=== PATIENT | male | born 1960 | race Caucasian/White ===

== ENCOUNTER 2017-11-04 04:57 | Inpatient (IN) | payer MEDICAID ==
[2017-11-04] MEDS: IPRATROPIUM (NEB) 0.5 MG/2.5 ML AMP NEB (05:43)
[2017-11-04] MEDS: ALBUTEROL 0.083% (NEB) 2.5 MG/3 ML AMP NEB (05:43)
[2017-11-04] MEDS: ACETAMINOPHEN 500 MG TAB PO (05:48)
[2017-11-04] MEDS: SODIUM CHLORIDE 0.9% 1L BAG IV* (05:48)
[2017-11-04] MEDS: CEFEPIME 2GM/50 ML (PMX) 50 ML IVPB (05:48)
[2017-11-04 06:11] LABS: ADD MAN DIFF? NO
[2017-11-04 06:19] LABS: WHITE BLOOD COUNT 21.2 10^3/ul (4.8-10.8)
[2017-11-04 06:19] LABS: BASOPHILS % 0.2 % (0.0-2.0); HEMATOCRIT 28.9 % (42.0-52.0); HEMOGLOBIN 9.3 g/dl (14.0-18.0); LYMPHOCYTES # 0.8 10^3/ul (0.8-2.9); LYMPHOCYTES % 3.6 % (15.0-51.0); MEAN CORPUSCULAR HEMOGLOBIN 25.4 pg (29.0-33.0); MEAN CORPUSCULAR HGB CONC 32.2 g/dl (32.0-37.0); MEAN PLATELET VOLUME 8.8 fl (7.4-10.4); MONOCYTE # 0.6 10^3/ul (0.3-0.9); NEUTROPHIL # 19.7 10^3/ul (1.6-7.5); NEUTROPHILS % 92.8 % (39.0-77.0); PLATELET COUNT 502 10^3/UL (140-415); RED BLOOD COUNT 3.66 10^6/ul (4.70-6.10); RED CELL DISTRIBUTION WIDTH 14.7 % (11.5-14.5)
[2017-11-04 06:36] LABS: ALANINE AMINOTRANSFERASE 41 IU/L (13-69); ALBUMIN 3.6 g/dl (3.3-4.9); ALBUMIN/GLOBULIN RATIO 0.92; ALKALINE PHOSPHATASE 217 IU/L (42-121); ANION GAP 17 (8-16); ASPARTATE AMINO TRANSFERASE 21 IU/L (15-46); BILIRUBIN,INDIRECT 0.2 mg/dl (0-1.1); BILIRUBIN,TOTAL 0.2 mg/dl (0.2-1.3); BLOOD UREA NITROGEN 13 mg/dl (7-20); CARBON DIOXIDE 22 mmol/L (21-31); CHLORIDE 101 mmol/L (97-110); CREATININE 0.49 mg/dl (0.61-1.24); GLUCOSE 100 mg/dl (70-220); POTASSIUM 3.8 mmol/L (3.5-5.1); SODIUM 136 mmol/L (135-144); TOTAL PROTEIN 7.5 g/dl (6.1-8.1)
[2017-11-04 06:37] LABS: INR 1.03; PROTIME 13.6 Sec (11.9-14.9); PT RATIO 1.1
[2017-11-04 06:38] LABS: PARTIAL THROMBOPLASTIN TIME 32.9 Sec (25.0-35.0)
[2017-11-04 06:43] LABS: LACTIC ACID 2.4 mmol/L (0.5-2.0)
[2017-11-04 06:51] LABS: TROPONIN-I < 0.012 ng/ml (0.00-0.12)
[2017-11-04] MEDS: VANCOMYCIN 1 GM (PMX) 250 ML IVPB (07:05)
[2017-11-04] MEDS ORDERED: ONDANSETRON 4 MG INJ IV (08:00)
[2017-11-04] MEDS ORDERED: ACETAMINOPHEN 650 MG SUPP PR (08:00)
[2017-11-04] MEDS ORDERED: NACL 0.9% 3 ML SYG IV (08:00)
[2017-11-04 08:40] LABS: ADD UMIC YES; UR AMORPHOUS CRYSTAL FEW /HPF (NONE SEEN); UR ASCORBIC ACID 40 mg/dL (NEGATIVE); UR BACTERIA FEW /HPF (NONE SEEN); UR BILIRUBIN (Dip) NEGATIVE (NEGATIVE); UR BLOOD (Dip) NEGATIVE (NEGATIVE); UR CLARITY CLOUDY (CLEAR); UR COLOR AMBER (YELLOW); UR GLUCOSE (Dip) NEGATIVE (NEGATIVE); UR KETONES (Dip) NEGATIVE (NEGATIVE); UR LEUKOCYTE ESTERASE (Dip) 3+ Leu/ul (NEGATIVE); UR MUCUS MANY /HPF (NONE SEEN); UR NITRITE (Dip) NEGATIVE (NEGATIVE); UR RBC 9 /HPF (0-5); UR SPECIFIC GRAVITY (Dip) 1.015 (1.003-1.030); UR SQUAMOUS EPITHELIAL CELL FEW /HPF (FEW); UR TOTAL PROTEIN (Dip) 1+ mg/dl (NEGATIVE); UR UROBILINOGEN (Dip) NEGATIVE (NEGATIVE); UR WBC > 182 /HPF (0-5)
[2017-11-04 10:50] LABS: LACTIC ACID 2.9 mmol/L (0.5-2.0)
[2017-11-04] MEDS: SOD CHLORIDE 0.9% 1,000 ML IV ×2 (13:02→16:33)
[2017-11-04] MEDS ORDERED: VANCOMYCIN IV PER PHARMACY XX (16:00)
[2017-11-04] MEDS: VANCOMYCIN 1 GM 250 ML IVPB (16:32)
[2017-11-04] MEDS ORDERED: CEFEPIME 1GM/50 ML (PMX) 50 ML IVPB (17:00)
[2017-11-04] MEDS: CEFEPIME 1GM/50 ML (PMX) 50 ML IVPB (20:39)
[2017-11-04] MEDS ORDERED: ACETAMINOPHEN 325 MG TAB PO (21:00)
[2017-11-04] MEDS ORDERED: ALBUTEROL/IPRATROPIUM (NEB) 3 ML AMP HHN ×2 (21:00)
[2017-11-04] MEDS ORDERED: NA PHOSPHATE/BIPHOS 133 ML ENEMA PR (21:00)
[2017-11-04] MEDS ORDERED: MAGNESIUM HYDROXIDE 30ML CUP PO (21:00)
[2017-11-04] MEDS ORDERED: GLUCAGON 1 MG INJ IM (21:30)
[2017-11-04] MEDS ORDERED: GLUCOSE GEL 15 GRAM TUBE PO ×2 (21:30)
[2017-11-04] MEDS ORDERED: GLUCOSE GEL 15 GRAM TUBE BUCCAL (21:30)
[2017-11-04] MEDS ORDERED: DEXTROSE 50% 50 ML SYRINGE IV ×2 (21:30)
[2017-11-04] MEDS: SOD CHLORIDE 0.9% 100 ML (21:34)
[2017-11-04] MEDS: IOHEXOL 300MG/ML 150 ML BTL (21:34)
[2017-11-04] MEDS: ALBUTEROL/IPRATROPIUM (NEB) 3 ML AMP HHN (22:36)
[2017-11-04] MEDS: CHLORHEXIDINE GLUCONATE 15 ML UD CUP MT (22:41)
[2017-11-04] MEDS: ASCORBIC ACID 500 MG TAB PO (22:42)
[2017-11-04] MEDS: GABAPENTIN 300 MG CAP PO (22:42)
[2017-11-04] MEDS: ZOLPIDEM 5 MG TAB PO (22:42)
[2017-11-04] MEDS: FERROUS SULFATE (EC) 325 MG TAB PO (22:42)
[2017-11-04] MEDS: DOCUSATE SODIUM 100 MG CAP PO (22:42)
[2017-11-04] MEDS: ATORVASTATIN 80 MG TAB PO (22:42)
[2017-11-05] MEDS: VANCOMYCIN 1 GM 250 ML IVPB ×2 (02:11→10:17)
[2017-11-05] MEDS: ALBUTEROL/IPRATROPIUM (NEB) 3 ML AMP HHN ×3 (03:05→21:13)
[2017-11-05] MEDS: GABAPENTIN 300 MG CAP PO ×4 (06:20→21:55)
[2017-11-05] MEDS: SOD CHLORIDE 0.9% 1,000 ML IV ×3 (08:33→23:55)
[2017-11-05] MEDS: CEFEPIME 1GM/50 ML (PMX) 50 ML IVPB (08:50)
[2017-11-05] MEDS: ASCORBIC ACID 500 MG TAB PO ×3 (08:51→20:52)
[2017-11-05] MEDS: CHLORHEXIDINE GLUCONATE 15 ML UD CUP MT ×2 (08:51→20:53)
[2017-11-05] MEDS: ZINC SULFATE 220 MG CAP PO (08:51)
[2017-11-05] MEDS: FERROUS SULFATE (EC) 325 MG TAB PO ×3 (08:52→20:53)
[2017-11-05] MEDS: metFORMIN 500 MG TAB PO ×2 (08:52→17:37)
[2017-11-05] MEDS: MULTIVITAMINS THERAPEUTIC TAB PO (08:52)
[2017-11-05] MEDS: ASPIRIN (EC) 81 MG TAB PO (08:52)
[2017-11-05 08:54] LABS: ADD MAN DIFF? NO
[2017-11-05] MEDS: BENAZEPRIL 5 MG TAB PO (08:55)
[2017-11-05] MEDS ORDERED: NON-FORMULARY/PATIENT OWN MED (Cranberry Extract (Cranberry) 425 MG) PO (09:00)
[2017-11-05 09:01] LABS: BASOPHIL # 0.1 10^3/ul (0.0-0.1); BASOPHILS % 0.2 % (0.0-2.0); EOSINOPHILS # 0.1 10^3/ul (0.0-0.5); EOSINOPHILS % 0.7 % (0.0-7.0); HEMATOCRIT 28.2 % (42.0-52.0); LYMPHOCYTES # 1.2 10^3/ul (0.8-2.9); LYMPHOCYTES % 6.1 % (15.0-51.0); MEAN CORPUSCULAR HEMOGLOBIN 25.4 pg (29.0-33.0); MEAN CORPUSCULAR HGB CONC 31.9 g/dl (32.0-37.0); MEAN CORPUSCULAR VOLUME 79.4 fl (82.0-101.0); MEAN PLATELET VOLUME 8.1 fl (7.4-10.4); MONOCYTE # 0.6 10^3/ul (0.3-0.9); MONOCYTES % 2.7 % (0.0-11.0); NEUTROPHIL # 18.3 10^3/ul (1.6-7.5); NEUTROPHILS % 89.6 % (39.0-77.0); PLATELET COUNT 484 10^3/UL (140-415); RED BLOOD COUNT 3.55 10^6/ul (4.70-6.10)
[2017-11-05 09:01] LABS: WHITE BLOOD COUNT 20.4 10^3/ul (4.8-10.8)
[2017-11-05 09:07] LABS: HEMOGLOBIN A1C 5.4 % (0-5.9)
[2017-11-05 09:23] LABS: ALANINE AMINOTRANSFERASE 25 IU/L (13-69); ALBUMIN 3.5 g/dl (3.3-4.9); ALBUMIN/GLOBULIN RATIO 1.06; ALKALINE PHOSPHATASE 188 IU/L (42-121); ANION GAP 14 (8-16); ASPARTATE AMINO TRANSFERASE 13 IU/L (15-46); BLOOD UREA NITROGEN 8 mg/dl (7-20); CALCIUM 8.8 mg/dl (8.4-10.2); CARBON DIOXIDE 22 mmol/L (21-31); CHLORIDE 108 mmol/L (97-110); CHOL/HDL RATIO 3.1 RATIO; CHOLESTEROL 85 mg/dl (100-200); CREATININE 0.36 mg/dl (0.61-1.24); GLUCOSE 91 mg/dl (70-220); HDL CHOLESTEROL 27 mg/dl (28-71); LDL CHOLESTEROL,CALCULATED 42 mg/dl; MAGNESIUM 1.7 mg/dl (1.7-2.5); SODIUM 141 mmol/L (135-144); TOTAL PROTEIN 6.8 g/dl (6.1-8.1); TRIGLYCERIDES 78 mg/dl (0-149)
[2017-11-05 09:24] LABS: VANCOMYCIN,TROUGH 11.2 ug/ml (10.0-20.0)
[2017-11-05 09:27] LABS: POTASSIUM 2.8 mmol/L (3.5-5.1)
[2017-11-05 09:29] LABS: LACTIC ACID 0.7 mmol/L (0.5-2.0)
[2017-11-05] MEDS: POTASSIUM CHLORIDE (SR) 20 MEQ TAB PO ×2 (11:39→15:03)
[2017-11-05] MEDS: POTASSIUM CHLORIDE 100 ML IVPB (12:44)
[2017-11-05] MEDS: ATORVASTATIN 80 MG TAB PO (20:52)
[2017-11-05] MEDS: VANCOMYCIN 1.25 GM in SOD CHLORIDE 0.9% 250 ML IVPB (20:52)
[2017-11-05] MEDS: DOCUSATE SODIUM 100 MG CAP PO (20:52)
[2017-11-05] MEDS: ZOLPIDEM 5 MG TAB PO (21:55)
[2017-11-06] MEDS: CEFEPIME 1GM/50 ML (PMX) 50 ML IVPB ×3 (01:24→20:47)
[2017-11-06] MEDS: VANCOMYCIN 1.25 GM in SOD CHLORIDE 0.9% 250 ML IVPB ×3 (02:29→18:00)
[2017-11-06] MEDS: SOD CHLORIDE 0.9% 1,000 ML IV ×2 (05:54→23:03)
[2017-11-06] MEDS: GABAPENTIN 300 MG CAP PO ×3 (05:54→21:06)
[2017-11-06 06:33] LABS: ADD MAN DIFF? NO
[2017-11-06 06:41] LABS: WHITE BLOOD COUNT 15.5 10^3/ul (4.8-10.8)
[2017-11-06 06:41] LABS: BASOPHILS % 0.3 % (0.0-2.0); EOSINOPHILS # 0.4 10^3/ul (0.0-0.5); EOSINOPHILS % 2.3 % (0.0-7.0); HEMATOCRIT 28.3 % (42.0-52.0); HEMOGLOBIN 8.9 g/dl (14.0-18.0); LYMPHOCYTES # 1.2 10^3/ul (0.8-2.9); LYMPHOCYTES % 7.8 % (15.0-51.0); MEAN CORPUSCULAR HEMOGLOBIN 25.5 pg (29.0-33.0); MEAN CORPUSCULAR HGB CONC 31.4 g/dl (32.0-37.0); MEAN CORPUSCULAR VOLUME 81.1 fl (82.0-101.0); MEAN PLATELET VOLUME 9.4 fl (7.4-10.4); MONOCYTE # 0.6 10^3/ul (0.3-0.9); MONOCYTES % 3.8 % (0.0-11.0); NEUTROPHIL # 13.2 10^3/ul (1.6-7.5); NEUTROPHILS % 85.2 % (39.0-77.0); PLATELET COUNT 404 10^3/UL (140-415); POSITIVE DIFF @See below; RED BLOOD COUNT 3.49 10^6/ul (4.70-6.10); RED CELL DISTRIBUTION WIDTH 14.9 % (11.5-14.5)
[2017-11-06 06:57] LABS: IRON 47 ug/dl (35-150)
[2017-11-06 07:00] LABS: ANION GAP 14 (8-16); BLOOD UREA NITROGEN 6 mg/dl (7-20); CALCIUM 8.9 mg/dl (8.4-10.2); CARBON DIOXIDE 21 mmol/L (21-31); CHLORIDE 110 mmol/L (97-110); CREATININE 0.32 mg/dl (0.61-1.24); GLUCOSE 97 mg/dl (70-220); MAGNESIUM 1.8 mg/dl (1.7-2.5); POTASSIUM 3.7 mmol/L (3.5-5.1); SODIUM 141 mmol/L (135-144)
[2017-11-06 07:07] LABS: % IRON SATURATION 24 % SAT (22-52); TOTAL IRON BINDING CAPACITY 192 ug/dl (241-421)
[2017-11-06] MEDS: ENOXAPARIN 30 MG/0.3 ML SYG SC (09:05)
[2017-11-06] MEDS: CHLORHEXIDINE GLUCONATE 15 ML UD CUP MT ×2 (09:05→20:48)
[2017-11-06] MEDS: FERROUS SULFATE (EC) 325 MG TAB PO ×2 (09:05→20:48)
[2017-11-06] MEDS: ASCORBIC ACID 500 MG TAB PO ×3 (09:05→20:48)
[2017-11-06] MEDS: BENAZEPRIL 5 MG TAB PO (09:06)
[2017-11-06] MEDS: ZINC SULFATE 220 MG CAP PO (09:06)
[2017-11-06] MEDS: ASPIRIN (EC) 81 MG TAB PO (09:06)
[2017-11-06] MEDS: MULTIVITAMINS THERAPEUTIC TAB PO (09:10)
[2017-11-06] MEDS: SODIUM HYPOCHLORITE 0.125% 473 ML BTL IRR ×2 (09:12→20:46)
[2017-11-06] MEDS: metFORMIN 500 MG TAB PO (09:19)
[2017-11-06] MEDS: POTASSIUM CHLORIDE (SR) 20 MEQ TAB PO (11:05)
[2017-11-06] MEDS: ALBUTEROL/IPRATROPIUM (NEB) 3 ML AMP HHN (12:06)
[2017-11-06 18:17] LABS: VANCOMYCIN,TROUGH 20.7 ug/ml (10.0-20.0)
[2017-11-06] MEDS: VANCOMYCIN 1 GM 250 ML IVPB (20:46)
[2017-11-06] MEDS: DOCUSATE SODIUM 100 MG CAP PO (20:48)
[2017-11-06] MEDS: ATORVASTATIN 80 MG TAB PO (20:48)
[2017-11-06] MEDS: FISH OIL 1,000 MG CAP PO (20:49)
[2017-11-06] MEDS: MUPIROCIN 2% 22 GM OINT TOP (20:49)
[2017-11-06] MEDS: BACLOFEN 10 MG TAB PO (21:05)
[2017-11-06] MEDS: ZOLPIDEM 5 MG TAB PO (23:04)
[2017-11-07] MEDS: VANCOMYCIN 1 GM 250 ML IVPB ×3 (04:34→21:38)
[2017-11-07 05:39] LABS: ADD MAN DIFF? NO
[2017-11-07 05:41] LABS: WHITE BLOOD COUNT 10.6 10^3/ul (4.8-10.8)
[2017-11-07 05:41] LABS: BASOPHILS % 0.3 % (0.0-2.0); EOSINOPHILS # 0.4 10^3/ul (0.0-0.5); EOSINOPHILS % 3.9 % (0.0-7.0); HEMATOCRIT 27.9 % (42.0-52.0); HEMOGLOBIN 8.8 g/dl (14.0-18.0); LYMPHOCYTES # 1.4 10^3/ul (0.8-2.9); LYMPHOCYTES % 13.1 % (15.0-51.0); MEAN CORPUSCULAR HEMOGLOBIN 25.1 pg (29.0-33.0); MEAN CORPUSCULAR HGB CONC 31.5 g/dl (32.0-37.0); MEAN CORPUSCULAR VOLUME 79.7 fl (82.0-101.0); MEAN PLATELET VOLUME 8.2 fl (7.4-10.4); MONOCYTE # 0.6 10^3/ul (0.3-0.9); MONOCYTES % 5.5 % (0.0-11.0); NEUTROPHIL # 8.2 10^3/ul (1.6-7.5); NEUTROPHILS % 76.7 % (39.0-77.0); PLATELET COUNT 514 10^3/UL (140-415); RED CELL DISTRIBUTION WIDTH 14.9 % (11.5-14.5)
[2017-11-07] MEDS: GABAPENTIN 300 MG CAP PO ×3 (06:00→21:38)
[2017-11-07 06:03] LABS: ANION GAP 14 (8-16); BLOOD UREA NITROGEN 4 mg/dl (7-20); CALCIUM 8.9 mg/dl (8.4-10.2); CARBON DIOXIDE 24 mmol/L (21-31); CHLORIDE 109 mmol/L (97-110); CREATININE 0.32 mg/dl (0.61-1.24); GLUCOSE 101 mg/dl (70-220); POTASSIUM 3.7 mmol/L (3.5-5.1); SODIUM 143 mmol/L (135-144)
[2017-11-07] MEDS: MULTIVITAMINS THERAPEUTIC TAB PO (09:01)
[2017-11-07] MEDS: ASPIRIN (EC) 81 MG TAB PO (09:01)
[2017-11-07] MEDS: CEFEPIME 1GM/50 ML (PMX) 50 ML IVPB ×2 (09:01→20:52)
[2017-11-07] MEDS: ZINC SULFATE 220 MG CAP PO (09:01)
[2017-11-07] MEDS: ASCORBIC ACID 500 MG TAB PO ×3 (09:01→20:53)
[2017-11-07] MEDS: BENAZEPRIL 5 MG TAB PO (09:01)
[2017-11-07] MEDS: FERROUS SULFATE (EC) 325 MG TAB PO ×2 (09:03→20:53)
[2017-11-07] MEDS: CHLORHEXIDINE GLUCONATE 15 ML UD CUP MT ×2 (09:04→20:53)
[2017-11-07] MEDS: FISH OIL 1,000 MG CAP PO ×2 (09:04→20:53)
[2017-11-07] MEDS: ENOXAPARIN 30 MG/0.3 ML SYG SC (09:05)
[2017-11-07] MEDS: MUPIROCIN 2% 22 GM OINT TOP ×2 (09:17→20:52)
[2017-11-07] MEDS: SODIUM HYPOCHLORITE 0.125% 473 ML BTL IRR ×2 (09:18→20:52)
[2017-11-07] MEDS: SOD CHLORIDE 0.9% 1,000 ML IV ×2 (10:05→23:25)
[2017-11-07] MEDS: ALBUTEROL/IPRATROPIUM (NEB) 3 ML AMP HHN (17:49)
[2017-11-07 19:54] LABS: VANCOMYCIN,TROUGH 16.9 ug/ml (10.0-20.0)
[2017-11-07] MEDS: GUAIFENESIN 20 MG/ML 5ML CUP PO (20:53)
[2017-11-07] MEDS: ATORVASTATIN 80 MG TAB PO (20:53)
[2017-11-07] MEDS: DOCUSATE SODIUM 100 MG CAP PO (20:53)
[2017-11-07] MEDS: ZOLPIDEM 5 MG TAB PO (23:38)
[2017-11-08] MEDS: SOD CHLORIDE 0.9% 1,000 ML IV ×2 (03:47→22:38)
[2017-11-08] MEDS: VANCOMYCIN 1 GM 250 ML IVPB ×3 (04:47→20:29)
[2017-11-08] MEDS: GABAPENTIN 300 MG CAP PO ×3 (06:00→22:04)
[2017-11-08 06:18] LABS: ADD MAN DIFF? NO
[2017-11-08 06:24] LABS: BASOPHIL # 0.1 10^3/ul (0.0-0.1); BASOPHILS % 0.7 % (0.0-2.0); EOSINOPHILS # 0.5 10^3/ul (0.0-0.5); EOSINOPHILS % 6.4 % (0.0-7.0); HEMATOCRIT 27.6 % (42.0-52.0); HEMOGLOBIN 8.8 g/dl (14.0-18.0); LYMPHOCYTES # 1.6 10^3/ul (0.8-2.9); LYMPHOCYTES % 21.5 % (15.0-51.0); MEAN CORPUSCULAR HEMOGLOBIN 25.6 pg (29.0-33.0); MEAN CORPUSCULAR HGB CONC 31.9 g/dl (32.0-37.0); MEAN CORPUSCULAR VOLUME 80.2 fl (82.0-101.0); MEAN PLATELET VOLUME 8.2 fl (7.4-10.4); MONOCYTE # 0.5 10^3/ul (0.3-0.9); MONOCYTES % 6.9 % (0.0-11.0); NEUTROPHIL # 4.8 10^3/ul (1.6-7.5); NEUTROPHILS % 64.1 % (39.0-77.0); PLATELET COUNT 486 10^3/UL (140-415); RED BLOOD COUNT 3.44 10^6/ul (4.70-6.10); RED CELL DISTRIBUTION WIDTH 14.8 % (11.5-14.5)
[2017-11-08 06:24] LABS: WHITE BLOOD COUNT 7.5 10^3/ul (4.8-10.8)
[2017-11-08 06:49] LABS: ANION GAP 12 (8-16); BLOOD UREA NITROGEN 4 mg/dl (7-20); CALCIUM 8.5 mg/dl (8.4-10.2); CARBON DIOXIDE 24 mmol/L (21-31); CHLORIDE 109 mmol/L (97-110); CREATININE 0.37 mg/dl (0.61-1.24); GLUCOSE 86 mg/dl (70-220); POTASSIUM 3.3 mmol/L (3.5-5.1); SODIUM 142 mmol/L (135-144)
[2017-11-08] MEDS: ASPIRIN (EC) 81 MG TAB PO (09:22)
[2017-11-08] MEDS: ASCORBIC ACID 500 MG TAB PO ×3 (09:22→20:32)
[2017-11-08] MEDS: ZINC SULFATE 220 MG CAP PO (09:22)
[2017-11-08] MEDS: FISH OIL 1,000 MG CAP PO ×2 (09:22→20:32)
[2017-11-08] MEDS: BENAZEPRIL 5 MG TAB PO (09:22)
[2017-11-08] MEDS: FERROUS SULFATE (EC) 325 MG TAB PO ×2 (09:22→20:32)
[2017-11-08] MEDS: CEFEPIME 1GM/50 ML (PMX) 50 ML IVPB ×2 (09:22→22:34)
[2017-11-08] MEDS: CHLORHEXIDINE GLUCONATE 15 ML UD CUP MT ×2 (09:22→20:31)
[2017-11-08] MEDS: ENOXAPARIN 30 MG/0.3 ML SYG SC (09:24)
[2017-11-08] MEDS: MULTIVITAMINS THERAPEUTIC TAB PO (09:27)
[2017-11-08] MEDS: MUPIROCIN 2% 22 GM OINT TOP ×2 (09:33→20:33)
[2017-11-08] MEDS: SODIUM HYPOCHLORITE 0.125% 473 ML BTL IRR ×2 (09:33→20:33)
[2017-11-08] MEDS: ALBUTEROL/IPRATROPIUM (NEB) 3 ML AMP HHN ×2 (09:53→17:26)
[2017-11-08] MEDS: GUAIFENESIN/DM 5ML CUP PO ×2 (16:43→22:00)
[2017-11-08] MEDS: POTASSIUM CHLORIDE (SR) 20 MEQ TAB PO (16:43)
[2017-11-08] MEDS: BENAZEPRIL 20 MG TAB PO (16:43)
[2017-11-08] MEDS: DOCUSATE SODIUM 100 MG CAP PO (20:31)
[2017-11-08] MEDS: ATORVASTATIN 80 MG TAB PO (20:32)
[2017-11-08] MEDS: ZOLPIDEM 5 MG TAB PO (21:59)
[2017-11-09] MEDS: VANCOMYCIN 1 GM 250 ML IVPB ×3 (04:24→20:07)
[2017-11-09] MEDS: SOD CHLORIDE 0.9% 1,000 ML IV (04:27)
[2017-11-09] MEDS: GABAPENTIN 300 MG CAP PO ×3 (06:22→22:03)
[2017-11-09] MEDS: CEFEPIME 1GM/50 ML (PMX) 50 ML IVPB ×2 (08:31→22:35)
[2017-11-09] MEDS: ENOXAPARIN 30 MG/0.3 ML SYG SC (08:32)
[2017-11-09] MEDS: FISH OIL 1,000 MG CAP PO ×2 (08:34→20:09)
[2017-11-09] MEDS: ASPIRIN (EC) 81 MG TAB PO (08:34)
[2017-11-09] MEDS: ASCORBIC ACID 500 MG TAB PO ×3 (08:34→20:09)
[2017-11-09] MEDS: CHLORHEXIDINE GLUCONATE 15 ML UD CUP MT ×2 (08:34→20:10)
[2017-11-09] MEDS: ZINC SULFATE 220 MG CAP PO (08:34)
[2017-11-09] MEDS: FERROUS SULFATE (EC) 325 MG TAB PO ×2 (08:34→20:09)
[2017-11-09] MEDS: BENAZEPRIL 40 MG TAB PO (08:34)
[2017-11-09] MEDS: MUPIROCIN 2% 22 GM OINT TOP ×2 (08:35→20:10)
[2017-11-09] MEDS: SODIUM HYPOCHLORITE 0.125% 473 ML BTL IRR ×2 (08:35→22:03)
[2017-11-09] MEDS: MULTIVITAMINS THERAPEUTIC TAB PO (08:57)
[2017-11-09] MEDS: GUAIFENESIN/DM 5ML CUP PO ×2 (09:31→19:15)
[2017-11-09] MEDS: ALBUTEROL/IPRATROPIUM (NEB) 3 ML AMP HHN (12:37)
[2017-11-09] MEDS: ATORVASTATIN 80 MG TAB PO (20:09)
[2017-11-09] MEDS: DOCUSATE SODIUM 100 MG CAP PO (20:09)
[2017-11-09] MEDS: hydrALAzine 20 MG INJ IV (22:01)
[2017-11-09] MEDS: ZOLPIDEM 5 MG TAB PO (22:03)
[2017-11-10] MEDS: SOD CHLORIDE 0.9% 1,000 ML IV ×3 (01:48→18:05)
[2017-11-10] MEDS: VANCOMYCIN 1 GM 250 ML IVPB ×3 (04:26→22:28)
[2017-11-10] MEDS: GABAPENTIN 300 MG CAP PO ×3 (06:09→21:16)
[2017-11-10] MEDS: ENOXAPARIN 30 MG/0.3 ML SYG SC (09:06)
[2017-11-10] MEDS: CEFEPIME 1GM/50 ML (PMX) 50 ML IVPB ×2 (09:06→21:16)
[2017-11-10] MEDS: FISH OIL 1,000 MG CAP PO ×2 (09:07→21:16)
[2017-11-10] MEDS: BENAZEPRIL 40 MG TAB PO (09:07)
[2017-11-10] MEDS: CHLORHEXIDINE GLUCONATE 15 ML UD CUP MT ×2 (09:07→21:14)
[2017-11-10] MEDS: FERROUS SULFATE (EC) 325 MG TAB PO ×2 (09:07→21:14)
[2017-11-10] MEDS: ASCORBIC ACID 500 MG TAB PO ×3 (09:07→21:16)
[2017-11-10] MEDS: ASPIRIN (EC) 81 MG TAB PO (09:07)
[2017-11-10] MEDS: ZINC SULFATE 220 MG CAP PO (09:07)
[2017-11-10] MEDS: MULTIVITAMINS THERAPEUTIC TAB PO (09:07)
[2017-11-10] MEDS: SODIUM HYPOCHLORITE 0.125% 473 ML BTL IRR ×2 (09:08→22:28)
[2017-11-10] MEDS: MUPIROCIN 2% 22 GM OINT TOP ×2 (09:08→21:17)
[2017-11-10 12:43] LABS: VANCOMYCIN,TROUGH 13.6 ug/ml (10.0-20.0)
[2017-11-10] MEDS: DOCUSATE SODIUM 100 MG CAP PO (21:14)
[2017-11-10] MEDS: ATORVASTATIN 80 MG TAB PO (21:16)
[2017-11-10] MEDS: ZOLPIDEM 5 MG TAB PO (22:53)
[2017-11-11] MEDS: VANCOMYCIN 1 GM 250 ML IVPB ×3 (04:12→20:19)
[2017-11-11] MEDS: GABAPENTIN 300 MG CAP PO ×3 (06:40→22:02)
[2017-11-11 06:48] LABS: CREATININE 0.34 mg/dl (0.61-1.24)
[2017-11-11 06:48] LABS: BLOOD UREA NITROGEN 8 mg/dl (7-20)
[2017-11-11] MEDS: CEFEPIME 1GM/50 ML (PMX) 50 ML IVPB ×2 (09:41→22:02)
[2017-11-11] MEDS: ASCORBIC ACID 500 MG TAB PO ×3 (09:43→20:20)
[2017-11-11] MEDS: FISH OIL 1,000 MG CAP PO ×2 (09:43→20:19)
[2017-11-11] MEDS: BENAZEPRIL 40 MG TAB PO (09:43)
[2017-11-11] MEDS: MULTIVITAMINS THERAPEUTIC TAB PO (09:43)
[2017-11-11] MEDS: ZINC SULFATE 220 MG CAP PO (09:43)
[2017-11-11] MEDS: ASPIRIN (EC) 81 MG TAB PO (09:43)
[2017-11-11] MEDS: FERROUS SULFATE (EC) 325 MG TAB PO ×2 (09:43→20:20)
[2017-11-11] MEDS: MUPIROCIN 2% 22 GM OINT TOP ×2 (09:44→20:20)
[2017-11-11] MEDS: SODIUM HYPOCHLORITE 0.125% 473 ML BTL IRR ×2 (09:44→22:02)
[2017-11-11] MEDS: CHLORHEXIDINE GLUCONATE 15 ML UD CUP MT (09:44)
[2017-11-11] MEDS: ENOXAPARIN 30 MG/0.3 ML SYG SC (09:52)
[2017-11-11] MEDS: GUAIFENESIN LA 600 MG TABSR PO ×2 (09:57→20:20)
[2017-11-11] MEDS: SOD CHLORIDE 0.9% 1,000 ML IV (13:32)
[2017-11-11] MEDS: ALBUTEROL/IPRATROPIUM (NEB) 3 ML AMP HHN (16:20)
[2017-11-11] MEDS: DOCUSATE SODIUM 100 MG CAP PO (20:19)
[2017-11-11] MEDS: ATORVASTATIN 80 MG TAB PO (20:20)
[2017-11-11] MEDS: ZOLPIDEM 5 MG TAB PO (22:02)
[2017-11-12] MEDS: SOD CHLORIDE 0.9% 1,000 ML IV ×2 (03:25→10:22)
[2017-11-12] MEDS: VANCOMYCIN 1 GM 250 ML IVPB ×3 (04:46→20:11)
[2017-11-12 05:50] LABS: ADD MAN DIFF? NO
[2017-11-12 05:59] LABS: BASOPHILS % 0.4 % (0.0-2.0); EOSINOPHILS # 0.4 10^3/ul (0.0-0.5); EOSINOPHILS % 6.9 % (0.0-7.0); HEMOGLOBIN 8.9 g/dl (14.0-18.0); LYMPHOCYTES # 1.6 10^3/ul (0.8-2.9); LYMPHOCYTES % 29.3 % (15.0-51.0); MEAN CORPUSCULAR HEMOGLOBIN 25.6 pg (29.0-33.0); MEAN CORPUSCULAR HGB CONC 31.8 g/dl (32.0-37.0); MEAN CORPUSCULAR VOLUME 80.5 fl (82.0-101.0); MEAN PLATELET VOLUME 8.3 fl (7.4-10.4); MONOCYTE # 0.4 10^3/ul (0.3-0.9); MONOCYTES % 7.1 % (0.0-11.0); NEUTROPHIL # 3.1 10^3/ul (1.6-7.5); NEUTROPHILS % 55.8 % (39.0-77.0); PLATELET COUNT 458 10^3/UL (140-415); RED BLOOD COUNT 3.48 10^6/ul (4.70-6.10); RED CELL DISTRIBUTION WIDTH 14.8 % (11.5-14.5)
[2017-11-12 05:59] LABS: WHITE BLOOD COUNT 5.5 10^3/ul (4.8-10.8)
[2017-11-12 06:53] LABS: ANION GAP 15 (8-16); BLOOD UREA NITROGEN 8 mg/dl (7-20); CALCIUM 8.4 mg/dl (8.4-10.2); CARBON DIOXIDE 23 mmol/L (21-31); CHLORIDE 111 mmol/L (97-110); CREATININE 0.33 mg/dl (0.61-1.24); GLUCOSE 93 mg/dl (70-220); SODIUM 146 mmol/L (135-144)
[2017-11-12 07:00] LABS: POTASSIUM 2.8 mmol/L (3.5-5.1)
[2017-11-12] MEDS: GABAPENTIN 300 MG CAP PO ×3 (07:57→22:19)
[2017-11-12] MEDS: CEFEPIME 1GM/50 ML (PMX) 50 ML IVPB ×2 (08:35→22:19)
[2017-11-12] MEDS: FERROUS SULFATE (EC) 325 MG TAB PO ×2 (08:36→20:12)
[2017-11-12] MEDS: ENOXAPARIN 30 MG/0.3 ML SYG SC (08:36)
[2017-11-12] MEDS: FISH OIL 1,000 MG CAP PO ×2 (08:36→20:12)
[2017-11-12] MEDS: ASPIRIN (EC) 81 MG TAB PO (08:37)
[2017-11-12] MEDS: POTASSIUM CHLORIDE (SR) 20 MEQ TAB PO ×2 (08:37→20:11)
[2017-11-12] MEDS: BENAZEPRIL 40 MG TAB PO (08:38)
[2017-11-12] MEDS: MULTIVITAMINS THERAPEUTIC TAB PO (08:38)
[2017-11-12] MEDS: ASCORBIC ACID 500 MG TAB PO ×3 (08:38→20:12)
[2017-11-12] MEDS: ZINC SULFATE 220 MG CAP PO (08:46)
[2017-11-12] MEDS: GUAIFENESIN LA 600 MG TABSR PO ×2 (08:46→20:11)
[2017-11-12] MEDS: MUPIROCIN 2% 22 GM OINT TOP ×2 (08:47→20:12)
[2017-11-12] MEDS: SODIUM HYPOCHLORITE 0.125% 473 ML BTL IRR ×2 (08:47→22:19)
[2017-11-12 11:02] LABS: MAGNESIUM 1.9 mg/dl (1.7-2.5)
[2017-11-12] MEDS: ATORVASTATIN 80 MG TAB PO (20:11)
[2017-11-12] MEDS: DOCUSATE SODIUM 100 MG CAP PO (20:11)
[2017-11-12] MEDS: ZOLPIDEM 5 MG TAB PO (23:39)
[2017-11-13] MEDS: SOD CHLORIDE 0.9% 1,000 ML IV ×3 (02:44→21:59)
[2017-11-13] MEDS: VANCOMYCIN 1 GM 250 ML IVPB ×3 (04:17→21:05)
[2017-11-13] MEDS: GABAPENTIN 300 MG CAP PO ×3 (05:43→21:59)
[2017-11-13 06:47] LABS: ADD MAN DIFF? NO
[2017-11-13 06:53] LABS: BASOPHIL # 0.1 10^3/ul (0.0-0.1); BASOPHILS % 0.8 % (0.0-2.0); EOSINOPHILS # 0.5 10^3/ul (0.0-0.5); EOSINOPHILS % 7.3 % (0.0-7.0); HEMATOCRIT 28.2 % (42.0-52.0); HEMOGLOBIN 8.9 g/dl (14.0-18.0); LYMPHOCYTES # 1.7 10^3/ul (0.8-2.9); LYMPHOCYTES % 23.1 % (15.0-51.0); MEAN CORPUSCULAR HEMOGLOBIN 25.4 pg (29.0-33.0); MEAN CORPUSCULAR HGB CONC 31.6 g/dl (32.0-37.0); MEAN CORPUSCULAR VOLUME 80.6 fl (82.0-101.0); MEAN PLATELET VOLUME 8.2 fl (7.4-10.4); MONOCYTE # 0.4 10^3/ul (0.3-0.9); MONOCYTES % 5.9 % (0.0-11.0); NEUTROPHIL # 4.6 10^3/ul (1.6-7.5); NEUTROPHILS % 62.4 % (39.0-77.0); PLATELET COUNT 435 10^3/UL (140-415); RED CELL DISTRIBUTION WIDTH 15.2 % (11.5-14.5)
[2017-11-13 06:53] LABS: WHITE BLOOD COUNT 7.4 10^3/ul (4.8-10.8)
[2017-11-13 07:11] LABS: ANION GAP 12 (8-16); BLOOD UREA NITROGEN 8 mg/dl (7-20); CALCIUM 8.5 mg/dl (8.4-10.2); CARBON DIOXIDE 25 mmol/L (21-31); CHLORIDE 110 mmol/L (97-110); CREATININE 0.34 mg/dl (0.61-1.24); GLUCOSE 95 mg/dl (70-220); POTASSIUM 3.4 mmol/L (3.5-5.1); SODIUM 144 mmol/L (135-144)
[2017-11-13] MEDS: FISH OIL 1,000 MG CAP PO ×2 (08:57→21:10)
[2017-11-13] MEDS: ZINC SULFATE 220 MG CAP PO (08:57)
[2017-11-13] MEDS: GUAIFENESIN LA 600 MG TABSR PO ×2 (08:57→21:10)
[2017-11-13] MEDS: MULTIVITAMINS THERAPEUTIC TAB PO (08:57)
[2017-11-13] MEDS: ASCORBIC ACID 500 MG TAB PO ×3 (08:57→21:05)
[2017-11-13] MEDS: ASPIRIN (EC) 81 MG TAB PO (08:57)
[2017-11-13] MEDS: FERROUS SULFATE (EC) 325 MG TAB PO ×2 (08:57→21:05)
[2017-11-13] MEDS: BENAZEPRIL 40 MG TAB PO (08:58)
[2017-11-13] MEDS: ENOXAPARIN 30 MG/0.3 ML SYG SC (08:59)
[2017-11-13] MEDS: CEFEPIME 1GM/50 ML (PMX) 50 ML IVPB ×2 (09:02→23:05)
[2017-11-13] MEDS: SODIUM HYPOCHLORITE 0.125% 473 ML BTL IRR ×2 (09:03→21:07)
[2017-11-13] MEDS: MUPIROCIN 2% 22 GM OINT TOP ×2 (09:03→21:08)
[2017-11-13] MEDS: POTASSIUM CHLORIDE (SR) 20 MEQ TAB PO (10:19)
[2017-11-13 19:51] LABS: VANCOMYCIN,TROUGH 15.5 ug/ml (10.0-20.0)
[2017-11-13] MEDS: DOCUSATE SODIUM 100 MG CAP PO (21:05)
[2017-11-13] MEDS: ATORVASTATIN 80 MG TAB PO (21:10)
[2017-11-13] MEDS: hydrALAzine 20 MG INJ IV (22:28)
[2017-11-13] MEDS: ZOLPIDEM 5 MG TAB PO (23:12)
[2017-11-14] MEDS: ALBUTEROL/IPRATROPIUM (NEB) 3 ML AMP HHN ×2 (00:11→16:15)
[2017-11-14] MEDS: VANCOMYCIN 1 GM 250 ML IVPB ×3 (03:59→20:57)
[2017-11-14 06:06] LABS: ADD MAN DIFF? NO
[2017-11-14 06:10] LABS: BASOPHIL # 0.1 10^3/ul (0.0-0.1); BASOPHILS % 0.8 % (0.0-2.0); EOSINOPHILS # 0.4 10^3/ul (0.0-0.5); EOSINOPHILS % 5.2 % (0.0-7.0); HEMATOCRIT 28.1 % (42.0-52.0); HEMOGLOBIN 8.7 g/dl (14.0-18.0); LYMPHOCYTES # 1.7 10^3/ul (0.8-2.9); LYMPHOCYTES % 21.1 % (15.0-51.0); MEAN CORPUSCULAR HEMOGLOBIN 25.2 pg (29.0-33.0); MEAN CORPUSCULAR VOLUME 81.4 fl (82.0-101.0); MEAN PLATELET VOLUME 8.6 fl (7.4-10.4); MONOCYTE # 0.4 10^3/ul (0.3-0.9); MONOCYTES % 4.7 % (0.0-11.0); NEUTROPHIL # 5.4 10^3/ul (1.6-7.5); NEUTROPHILS % 67.8 % (39.0-77.0); PLATELET COUNT 413 10^3/UL (140-415); RED BLOOD COUNT 3.45 10^6/ul (4.70-6.10); RED CELL DISTRIBUTION WIDTH 15.6 % (11.5-14.5)
[2017-11-14 06:10] LABS: WHITE BLOOD COUNT 7.9 10^3/ul (4.8-10.8)
[2017-11-14] MEDS: GABAPENTIN 300 MG CAP PO ×3 (06:11→20:58)
[2017-11-14 06:33] LABS: ANION GAP 16 (8-16); BLOOD UREA NITROGEN 8 mg/dl (7-20); CALCIUM 8.5 mg/dl (8.4-10.2); CARBON DIOXIDE 23 mmol/L (21-31); CHLORIDE 112 mmol/L (97-110); CREATININE 0.35 mg/dl (0.61-1.24); GLUCOSE 94 mg/dl (70-220); POTASSIUM 3.5 mmol/L (3.5-5.1); SODIUM 147 mmol/L (135-144)
[2017-11-14] MEDS: BENAZEPRIL 40 MG TAB PO (09:00)
[2017-11-14] MEDS: GUAIFENESIN LA 600 MG TABSR PO ×2 (09:24→20:57)
[2017-11-14] MEDS: CEFEPIME 1GM/50 ML (PMX) 50 ML IVPB ×2 (09:24→23:35)
[2017-11-14] MEDS: FISH OIL 1,000 MG CAP PO ×2 (09:25→20:58)
[2017-11-14] MEDS: ASPIRIN (EC) 81 MG TAB PO (09:25)
[2017-11-14] MEDS: MULTIVITAMINS THERAPEUTIC TAB PO (09:25)
[2017-11-14] MEDS: FERROUS SULFATE (EC) 325 MG TAB PO ×2 (09:25→20:58)
[2017-11-14] MEDS: ASCORBIC ACID 500 MG TAB PO ×3 (09:25→20:57)
[2017-11-14] MEDS: MUPIROCIN 2% 22 GM OINT TOP ×2 (09:28→20:57)
[2017-11-14] MEDS: ZINC SULFATE 220 MG CAP PO (09:29)
[2017-11-14] MEDS: ENOXAPARIN 30 MG/0.3 ML SYG SC (11:32)
[2017-11-14] MEDS: SODIUM HYPOCHLORITE 0.125% 473 ML BTL IRR ×2 (13:37→20:57)
[2017-11-14] MEDS: SOD CHLORIDE 0.9% 1,000 ML IV (17:32)
[2017-11-14] MEDS: DOCUSATE SODIUM 100 MG CAP PO (20:58)
[2017-11-14] MEDS: ATORVASTATIN 80 MG TAB PO (20:58)
[2017-11-14] MEDS: ZOLPIDEM 5 MG TAB PO (23:35)
[2017-11-15] MEDS: VANCOMYCIN 1 GM 250 ML IVPB ×3 (04:23→21:56)
[2017-11-15] MEDS: GABAPENTIN 300 MG CAP PO ×3 (06:10→21:57)
[2017-11-15 06:20] LABS: ADD MAN DIFF? NO
[2017-11-15] MEDS: SOD CHLORIDE 0.9% 1,000 ML IV ×2 (06:25→14:53)
[2017-11-15 06:27] LABS: WHITE BLOOD COUNT 7.2 10^3/ul (4.8-10.8)
[2017-11-15 06:27] LABS: BASOPHIL # 0.1 10^3/ul (0.0-0.1); BASOPHILS % 0.7 % (0.0-2.0); EOSINOPHILS # 0.6 10^3/ul (0.0-0.5); EOSINOPHILS % 7.8 % (0.0-7.0); HEMATOCRIT 29.1 % (42.0-52.0); LYMPHOCYTES # 1.7 10^3/ul (0.8-2.9); LYMPHOCYTES % 23.4 % (15.0-51.0); MEAN CORPUSCULAR HEMOGLOBIN 25.5 pg (29.0-33.0); MEAN CORPUSCULAR HGB CONC 30.9 g/dl (32.0-37.0); MEAN CORPUSCULAR VOLUME 82.4 fl (82.0-101.0); MEAN PLATELET VOLUME 8.5 fl (7.4-10.4); MONOCYTE # 0.4 10^3/ul (0.3-0.9); MONOCYTES % 5.6 % (0.0-11.0); NEUTROPHIL # 4.4 10^3/ul (1.6-7.5); NEUTROPHILS % 62.1 % (39.0-77.0); PLATELET COUNT 414 10^3/UL (140-415); RED BLOOD COUNT 3.53 10^6/ul (4.70-6.10); RED CELL DISTRIBUTION WIDTH 15.8 % (11.5-14.5)
[2017-11-15 06:42] LABS: ANION GAP 13 (8-16); BLOOD UREA NITROGEN 9 mg/dl (7-20); CALCIUM 8.4 mg/dl (8.4-10.2); CARBON DIOXIDE 23 mmol/L (21-31); CHLORIDE 111 mmol/L (97-110); CREATININE 0.38 mg/dl (0.61-1.24); GLUCOSE 93 mg/dl (70-220); POTASSIUM 3.3 mmol/L (3.5-5.1); SODIUM 144 mmol/L (135-144)
[2017-11-15] MEDS: CEFEPIME 1GM/50 ML (PMX) 50 ML IVPB ×2 (08:48→21:57)
[2017-11-15] MEDS: ENOXAPARIN 30 MG/0.3 ML SYG SC (08:48)
[2017-11-15] MEDS: MULTIVITAMINS THERAPEUTIC TAB PO (08:49)
[2017-11-15] MEDS: GUAIFENESIN LA 600 MG TABSR PO ×2 (08:49→21:57)
[2017-11-15] MEDS: ZINC SULFATE 220 MG CAP PO (08:49)
[2017-11-15] MEDS: FISH OIL 1,000 MG CAP PO ×2 (08:49→21:57)
[2017-11-15] MEDS: ASPIRIN (EC) 81 MG TAB PO (08:49)
[2017-11-15] MEDS: BENAZEPRIL 40 MG TAB PO (08:49)
[2017-11-15] MEDS: FERROUS SULFATE (EC) 325 MG TAB PO ×2 (08:50→21:57)
[2017-11-15] MEDS: MUPIROCIN 2% 22 GM OINT TOP ×2 (08:50→21:58)
[2017-11-15] MEDS: SODIUM HYPOCHLORITE 0.125% 473 ML BTL IRR ×2 (08:50→21:58)
[2017-11-15] MEDS: ASCORBIC ACID 500 MG TAB PO ×3 (08:50→22:04)
[2017-11-15] MEDS: POTASSIUM CHLORIDE (SR) 20 MEQ TAB PO (11:24)
[2017-11-15] MEDS: SENNA TAB PO (17:31)
[2017-11-15] MEDS: ATORVASTATIN 80 MG TAB PO (21:57)
[2017-11-15] MEDS: DOCUSATE SODIUM 100 MG CAP PO (21:57)
[2017-11-15] MEDS: BISACODYL 10 MG SUPP PR (23:36)
[2017-11-16] MEDS: VANCOMYCIN 1 GM 250 ML IVPB ×3 (03:46→20:09)
[2017-11-16] MEDS: SOD CHLORIDE 0.9% 1,000 ML IV (03:49)
[2017-11-16] MEDS: GABAPENTIN 300 MG CAP PO ×4 (06:00→22:13)
[2017-11-16 06:14] LABS: ANION GAP 14 (8-16); BLOOD UREA NITROGEN 8 mg/dl (7-20); CALCIUM 8.6 mg/dl (8.4-10.2); CARBON DIOXIDE 23 mmol/L (21-31); CHLORIDE 111 mmol/L (97-110); CREATININE 0.36 mg/dl (0.61-1.24); GLUCOSE 95 mg/dl (70-220); POTASSIUM 3.7 mmol/L (3.5-5.1); SODIUM 144 mmol/L (135-144)
[2017-11-16 06:36] LABS: ADD MAN DIFF? NO
[2017-11-16] MEDS: MULTIVITAMINS THERAPEUTIC TAB PO (09:01)
[2017-11-16] MEDS: ZINC SULFATE 220 MG CAP PO (09:01)
[2017-11-16] MEDS: SENNA TAB PO (09:01)
[2017-11-16] MEDS: FERROUS SULFATE (EC) 325 MG TAB PO ×2 (09:01→21:17)
[2017-11-16] MEDS: GUAIFENESIN LA 600 MG TABSR PO ×2 (09:01→21:17)
[2017-11-16] MEDS: FISH OIL 1,000 MG CAP PO ×2 (09:01→21:17)
[2017-11-16] MEDS: MUPIROCIN 2% 22 GM OINT TOP ×2 (09:02→21:18)
[2017-11-16] MEDS: BENAZEPRIL 40 MG TAB PO (09:02)
[2017-11-16] MEDS: ASPIRIN (EC) 81 MG TAB PO (09:02)
[2017-11-16] MEDS: ASCORBIC ACID 500 MG TAB PO ×3 (09:02→21:17)
[2017-11-16] MEDS: CEFEPIME 1GM/50 ML (PMX) 50 ML IVPB ×2 (09:02→22:13)
[2017-11-16] MEDS: SODIUM HYPOCHLORITE 0.125% 473 ML BTL IRR (09:02)
[2017-11-16] MEDS: ENOXAPARIN 30 MG/0.3 ML SYG SC (09:04)
[2017-11-16 09:56] LABS: WHITE BLOOD COUNT 12.6 10^3/ul (4.8-10.8)
[2017-11-16 09:57] LABS: HEMATOCRIT 30.2 % (42.0-52.0); HEMOGLOBIN 9.5 g/dl (14.0-18.0); MEAN CORPUSCULAR HGB CONC 31.5 g/dl (32.0-37.0); MEAN CORPUSCULAR VOLUME 82.7 fl (82.0-101.0); MEAN PLATELET VOLUME 8.6 fl (7.4-10.4); PLATELET COUNT 406 10^3/UL (140-415); RED BLOOD COUNT 3.65 10^6/ul (4.70-6.10); RED CELL DISTRIBUTION WIDTH 15.8 % (11.5-14.5)
[2017-11-16 09:58] LABS: BASOPHILS % 0.5 % (0.0-2.0); EOSINOPHILS % 4.5 % (0.0-7.0); LYMPHOCYTES % 13.4 % (15.0-51.0); MONOCYTES % 5.1 % (0.0-11.0); NEUTROPHILS % 75.9 % (39.0-77.0)
[2017-11-16 15:31] LABS: ADD UMIC YES; UR ASCORBIC ACID NEGATIVE (NEGATIVE); UR BACTERIA FEW /HPF (NONE SEEN); UR BILIRUBIN (Dip) NEGATIVE (NEGATIVE); UR BLOOD (Dip) NEGATIVE (NEGATIVE); UR CLARITY SLIGHTLY CLOUDY (CLEAR); UR COLOR STRAW (YELLOW); UR GLUCOSE (Dip) NEGATIVE (NEGATIVE); UR KETONES (Dip) NEGATIVE (NEGATIVE); UR LEUKOCYTE ESTERASE (Dip) TRACE Leu/ul (NEGATIVE); UR NITRITE (Dip) NEGATIVE (NEGATIVE); UR RBC 1 /HPF (0-5); UR SPECIFIC GRAVITY (Dip) 1.005 (1.003-1.030); UR SQUAMOUS EPITHELIAL CELL FEW /HPF (FEW); UR TOTAL PROTEIN (Dip) NEGATIVE (NEGATIVE); UR UROBILINOGEN (Dip) NEGATIVE (NEGATIVE); UR WBC 5 /HPF (0-5)
[2017-11-16] MEDS: HYDROCODONE/APAP (5/325) TAB PO (17:27)
[2017-11-16] MEDS ORDERED: HEPARIN 5,000 UNIT/0.5 ML VIAL SC (21:00)
[2017-11-16] MEDS: ATORVASTATIN 80 MG TAB PO (21:17)
[2017-11-16] MEDS: DOCUSATE SODIUM 100 MG CAP PO (21:17)
[2017-11-16] MEDS: HEPARIN 5,000 UNIT/0.5 ML VIAL SC (21:32)
[2017-11-16] MEDS: ZOLPIDEM 5 MG TAB PO ×2 (23:22)
[2017-11-17] MEDS: SOD CHLORIDE 0.9% 1,000 ML IV ×3 (02:20→20:39)
[2017-11-17] MEDS: ALBUTEROL/IPRATROPIUM (NEB) 3 ML AMP HHN (03:17)
[2017-11-17] MEDS: VANCOMYCIN 1 GM 250 ML IVPB ×3 (03:59→20:26)
[2017-11-17] MEDS: GABAPENTIN 300 MG CAP PO ×3 (06:01→22:02)
[2017-11-17] MEDS: CEFEPIME 1GM/50 ML (PMX) 50 ML IVPB ×2 (08:54→22:35)
[2017-11-17] MEDS: BENAZEPRIL 40 MG TAB PO (09:00)
[2017-11-17] MEDS: GUAIFENESIN LA 600 MG TABSR PO ×2 (10:24→20:34)
[2017-11-17] MEDS: ZINC SULFATE 220 MG CAP PO (10:24)
[2017-11-17] MEDS: SENNA TAB PO (10:25)
[2017-11-17] MEDS: FISH OIL 1,000 MG CAP PO ×2 (10:25→20:34)
[2017-11-17] MEDS: MULTIVITAMINS THERAPEUTIC TAB PO (10:25)
[2017-11-17] MEDS: FERROUS SULFATE (EC) 325 MG TAB PO ×2 (10:25→20:35)
[2017-11-17] MEDS: ASPIRIN (EC) 81 MG TAB PO (10:26)
[2017-11-17] MEDS: ASCORBIC ACID 500 MG TAB PO ×3 (10:29→20:34)
[2017-11-17] MEDS: HEPARIN 5,000 UNIT/0.5 ML VIAL SC ×2 (10:31→20:34)
[2017-11-17] MEDS: MUPIROCIN 2% 22 GM OINT TOP ×2 (10:33→20:40)
[2017-11-17] MEDS: HYDROCODONE/APAP (5/325) TAB PO (20:35)
[2017-11-17] MEDS: ATORVASTATIN 80 MG TAB PO (20:35)
[2017-11-17] MEDS: DOCUSATE SODIUM 100 MG CAP PO (20:35)
[2017-11-17] MEDS: ZOLPIDEM 5 MG TAB PO (23:31)
[2017-11-18 03:26] LABS: CREATININE 0.42 mg/dl (0.61-1.24)
[2017-11-18 03:26] LABS: BLOOD UREA NITROGEN 11 mg/dl (7-20)
[2017-11-18 03:30] LABS: VANCOMYCIN,TROUGH 15.6 ug/ml (10.0-20.0)
[2017-11-18] MEDS: VANCOMYCIN 1 GM 250 ML IVPB ×3 (04:01→19:51)
[2017-11-18 04:23] LABS: ERYTHROCYTE SEDIMENTATION RATE 80 mm/Hr (0-20)
[2017-11-18] MEDS: GABAPENTIN 300 MG CAP PO ×3 (06:00→21:56)
[2017-11-18] MEDS: CEFEPIME 1GM/50 ML (PMX) 50 ML IVPB ×2 (08:41→21:56)
[2017-11-18] MEDS: HEPARIN 5,000 UNIT/0.5 ML VIAL SC ×2 (08:42→20:16)
[2017-11-18] MEDS: ASCORBIC ACID 500 MG TAB PO ×3 (08:43→20:14)
[2017-11-18] MEDS: FERROUS SULFATE (EC) 325 MG TAB PO ×2 (08:43→20:14)
[2017-11-18] MEDS: ZINC SULFATE 220 MG CAP PO (08:43)
[2017-11-18] MEDS: ASPIRIN (EC) 81 MG TAB PO (08:43)
[2017-11-18] MEDS: GUAIFENESIN LA 600 MG TABSR PO ×2 (08:43→20:14)
[2017-11-18] MEDS: FISH OIL 1,000 MG CAP PO ×2 (08:43→20:14)
[2017-11-18] MEDS: MULTIVITAMINS THERAPEUTIC TAB PO (08:43)
[2017-11-18] MEDS: BENAZEPRIL 40 MG TAB PO (08:44)
[2017-11-18] MEDS: SENNA TAB PO (08:44)
[2017-11-18] MEDS: MUPIROCIN 2% 22 GM OINT TOP ×2 (08:46→20:17)
[2017-11-18] MEDS: SOD CHLORIDE 0.9% 1,000 ML IV ×2 (09:30→17:02)
[2017-11-18] MEDS: ATORVASTATIN 80 MG TAB PO (20:14)
[2017-11-18] MEDS: DOCUSATE SODIUM 100 MG CAP PO (20:14)
[2017-11-18] MEDS: HYDROCODONE/APAP (5/325) TAB PO (20:26)
[2017-11-18] MEDS: hydrALAzine 20 MG INJ IV (23:20)
[2017-11-18] MEDS: ZOLPIDEM 5 MG TAB PO (23:21)
[2017-11-19] MEDS: VANCOMYCIN 1 GM 250 ML IVPB ×3 (04:06→20:07)
[2017-11-19] MEDS: GABAPENTIN 300 MG CAP PO ×3 (05:22→22:12)
[2017-11-19] MEDS: BENAZEPRIL 40 MG TAB PO (09:00)
[2017-11-19] MEDS: CEFEPIME 1GM/50 ML (PMX) 50 ML IVPB ×2 (09:12→22:12)
[2017-11-19] MEDS: FERROUS SULFATE (EC) 325 MG TAB PO ×2 (09:13→20:11)
[2017-11-19] MEDS: ASPIRIN (EC) 81 MG TAB PO (09:13)
[2017-11-19] MEDS: FISH OIL 1,000 MG CAP PO ×2 (09:13→20:11)
[2017-11-19] MEDS: ZINC SULFATE 220 MG CAP PO (09:14)
[2017-11-19] MEDS: SENNA TAB PO (09:14)
[2017-11-19] MEDS: GUAIFENESIN LA 600 MG TABSR PO ×2 (09:14→20:12)
[2017-11-19] MEDS: ASCORBIC ACID 500 MG TAB PO ×3 (09:14→20:11)
[2017-11-19] MEDS: MULTIVITAMINS THERAPEUTIC TAB PO (09:14)
[2017-11-19] MEDS: MUPIROCIN 2% 22 GM OINT TOP ×2 (09:14→20:12)
[2017-11-19] MEDS: HEPARIN 5,000 UNIT/0.5 ML VIAL SC ×2 (09:14→20:15)
[2017-11-19] MEDS: SOD CHLORIDE 0.9% 1,000 ML IV (10:25)
[2017-11-19] MEDS: hydrALAzine 20 MG INJ IV (15:12)
[2017-11-19] MEDS: HYDROCODONE/APAP (5/325) TAB PO (15:19)
[2017-11-19] MEDS: ALBUTEROL/IPRATROPIUM (NEB) 3 ML AMP HHN (15:48)
[2017-11-19] MEDS: ATORVASTATIN 80 MG TAB PO (20:11)
[2017-11-19] MEDS: DOCUSATE SODIUM 100 MG CAP PO (20:12)
[2017-11-19] MEDS: ZOLPIDEM 5 MG TAB PO (23:27)
[2017-11-20] MEDS: SOD CHLORIDE 0.9% 1,000 ML IV ×2 (02:35→12:27)
[2017-11-20] MEDS: VANCOMYCIN 1 GM 250 ML IVPB ×2 (04:05→12:26)
[2017-11-20] MEDS: GABAPENTIN 300 MG CAP PO ×2 (05:30→14:46)
[2017-11-20] MEDS: HYDROCODONE/APAP (5/325) TAB PO (06:58)
[2017-11-20 07:12] LABS: CREATININE 0.34 mg/dl (0.61-1.24)
[2017-11-20 07:12] LABS: BLOOD UREA NITROGEN 9 mg/dl (7-20)
[2017-11-20] MEDS: MUPIROCIN 2% 22 GM OINT TOP (09:00)
[2017-11-20] MEDS: BENAZEPRIL 40 MG TAB PO (09:00)
[2017-11-20] MEDS: CEFEPIME 1GM/50 ML (PMX) 50 ML IVPB (09:01)
[2017-11-20] MEDS: ASPIRIN (EC) 81 MG TAB PO (09:01)
[2017-11-20] MEDS: SENNA TAB PO (09:01)
[2017-11-20] MEDS: MULTIVITAMINS THERAPEUTIC TAB PO (09:01)
[2017-11-20] MEDS: GUAIFENESIN LA 600 MG TABSR PO (09:01)
[2017-11-20] MEDS: FISH OIL 1,000 MG CAP PO (09:01)
[2017-11-20] MEDS: FERROUS SULFATE (EC) 325 MG TAB PO (09:01)
[2017-11-20] MEDS: ZINC SULFATE 220 MG CAP PO (09:02)
[2017-11-20] MEDS: ASCORBIC ACID 500 MG TAB PO ×2 (09:02→12:27)
[2017-11-20] MEDS: HEPARIN 5,000 UNIT/0.5 ML VIAL SC (09:05)
== END 2017-11-20 17:55 | DRG 871 ==
LOC: E/R 04:57 → PP2 05:41
DX: A41.9 Sepsis, unspecified organism (principal); L89.314 Pressure ulcer of right buttock, stage 4; L89.324 Pressure ulcer of left buttock, stage 4; J18.9 Pneumonia, unspecified organism; N39.0 Urinary tract infection, site not specified; G82.20 Paraplegia, unspecified; M86.8X8 Other osteomyelitis, other site; R65.20 Severe sepsis without septic shock; E11.69 Type 2 diabetes mellitus with other specified complication; B96.1 Klebsiella pneumoniae [K. pneumoniae] as the cause of diseases classified elsewhere; B95.2 Enterococcus as the cause of diseases classified elsewhere; B96.89 Other specified bacterial agents as the cause of diseases classified elsewhere; I10 Essential (primary) hypertension; J40 Bronchitis, not specified as acute or chronic; N31.9 Neuromuscular dysfunction of bladder, unspecified; E78.5 Hyperlipidemia, unspecified; Z16.24 Resistance to multiple antibiotics; V89.2XXS Person injured in unspecified motor-vehicle accident, traffic, sequela; Z22.322 Carrier or suspected carrier of Methicillin resistant Staphylococcus aureus; Z93.3 Colostomy status; Z95.828 Presence of other vascular implants and grafts; Z79.84 Long term (current) use of oral hypoglycemic drugs; Z79.82 Long term (current) use of aspirin
CPT/HCPCS: 36415; 71045; 71260; 78315; 80048; 80053; 80061; 80202; 81001; 82565; 82962; 83036; 83540; 83605; 83735; 84443; 84484; 84520; 85025; 85610; 85651; 85730; 86140; 87040; 87070; 87081; 87086; 87400; 89220; 93005; 94640; 94664; 96361; 96365; 96366; 96375; 99291-25; A9503